=== PATIENT | female | born 1985 | race Caucasian/White ===

== ENCOUNTER 2020-11-15 05:27 | Inpatient (IN) ==
[2020-11-15] MEDS ORDERED: ONDANSETRON 4 MG/2 ML VIAL IV PRN ×2 (05:38→11:43)
[2020-11-15] MEDS ORDERED: LACTATED RINGERS 500 ML IV PRN (05:38)
[2020-11-15] MEDS ORDERED: LACTATED RINGERS 1,000 ML IV ONE (05:38)
[2020-11-15] MEDS ORDERED: AMPICILLIN INJ 2,000 MG in SODIUM CHLORIDE 0.9% 100 ML IV ONE (05:56)
[2020-11-15] MEDS ORDERED: OXYTOCIN/LR 20 UNIT/1,000 ML BAG IV SCH (06:00)
[2020-11-15] MEDS: LACTATED RINGERS 1,000 ML IV SCH ×2 (06:02→08:44)
[2020-11-15 06:21] LABS: Basophils % 0.2 % (0.0-0.8); Eosinophils # 0.1 10*3/uL (0.0-0.87); Eosinophils % 0.5 % (0.00-10.9); Hematocrit 37.6 VOL% (35.7-47.0); Hemoglobin 12.6 GM/DL (12.0-16.0); Immature Granulocytes % 0.9 %; Lymphocytes % 17.9 % (21.3-54.2); Mean Corpuscular HGB Conc 33.5 GM/DL (32-36); Mean Corpuscular Volume 90.6 FL (87-102); Mean Platelet Volume 11.6 FL (9.6-12.0); Monocytes % 5.9 % (1.7-12.7); Neutrophils % 74.6 % (38.7-73.9); Platelet Count 179 T/CUMM (130-400); Red Blood Count 4.15 MC/CUMM (3.8-5.5); Red Cell Distribution Width 14.3 % (9.3-17.3); White Blood Count 10.9 T/CUMM (4-12)
[2020-11-15] MEDS ORDERED: NALOXONE 0.4 MG/ML VIAL IV PRN (06:28)
[2020-11-15] MEDS ORDERED: hydrOXYzine HCL 25 MG/1 ML VIAL IM PRN (06:28)
[2020-11-15] MEDS ORDERED: ePHEDrine 50 MG/ML VIAL IV PRN (06:28)
[2020-11-15] MEDS ORDERED: FAMOTIDINE 20 MG/2 ML VIAL IV ONE (06:28)
[2020-11-15] MEDS ORDERED: CITRIC ACID/SODIUM CITRATE 30 ML UDCUP PO ONE (06:28)
[2020-11-15] MEDS ORDERED: diphenhydrAMINE 50 MG/1 ML VIAL IV PRN (06:28)
[2020-11-15] MEDS ORDERED: fentaNYL 2 MCG/ROPIV 0.2% EPID 100 ML EPIDURAL SCH (06:30)
[2020-11-15 06:41] LABS: Albumin 2.6 G/DL (3.4-5.0); Bilirubin,Total 0.6 MG/DL (0.2-1.0); Osmolality,Calculated 278.5 MOS/KG (273-304); Potassium 3.9 MMOL/L (3.5-5.1); Total Protein 6.5 G/DL (6.4-8.2)
[2020-11-15] MEDS ORDERED: AMPICILLIN INJ 1,000 MG in SODIUM CHLORIDE 0.9% 100 ML IV SCH (10:00)
[2020-11-15 10:39] LABS: Bilirubin,Urine Negative (Negative); Blood, Urine Negative (Negative); Glucose,Urine (UA) Negative (Negative); Ketones,Urine Negative (Negative); Mucus,Urine Occasional /LPF (Occasional); Nitrite,Urine Negative (Negative); Protein,Urine Negative; RBC,Urine 4 /HPF (0-4); Squamous Epithelial Cell,Urine Occasional /HPF (0-10); Urine Appearance CLEAR (Clear); Urine Color Yellow (Yellow); Urine Specific Gravity 1.012 (1.001-1.035); Urine Urobilinogen < 2.0 EU/DL (0.2-1.0)
[2020-11-15] MEDS ORDERED: OXYTOCIN/LR 0 UNIT/0 ML BAG IV ONE (10:55)
[2020-11-15] MEDS ORDERED: TRANEXAMIC ACID 1,000 MG/10 ML VIAL ONE (10:55)
[2020-11-15] MEDS ORDERED: miSOPROStoL 200 MCG TABLET ONE (10:55)
[2020-11-15] MEDS ORDERED: METHYLERGONOVINE 0.2 MG/1 ML AMP ONE (10:56)
[2020-11-15] MEDS ORDERED: CARBOPROST TROMETHAMINE 250 MCG/ML AMP IM ONE (10:56)
[2020-11-15] MEDS ORDERED: SODIUM CHLORIDE 0.9% 0 ML IV ONE (10:57)
[2020-11-15 11:36] LABS: Cord Venous Blood HCO3 25.4 MMOL/L; Cord Venous Blood PO2 29.1
[2020-11-15 11:41] LABS: Cord Arterial Blood HCO3 23.4 MMOL/L
[2020-11-15] MEDS ORDERED: HYDROCORTISONE 2.5% RECTAL CREAM 30 GM TUBE TOP PRN (11:43)
[2020-11-15] MEDS ORDERED: oxyCODONE/ACETAMINOPHEN 5-325 MG TABLET PO PRN ×2 (11:43)
[2020-11-15] MEDS ORDERED: MEASLES/MUMPS/RUBELLA VACCINE 0.5 ML VIAL SUBCUT ONE (11:43)
[2020-11-15] MEDS ORDERED: OXYTOCIN/LR 20 UNIT/1,000 ML BAG IV ONE (11:43)
[2020-11-15] MEDS ORDERED: LANOLIN 50% CREAM 0.3 OZ TUBE TOP PRN (11:43)
[2020-11-15] MEDS ORDERED: BISACODYL 10 MG SUPP RECTAL PRN (11:43)
[2020-11-15] MEDS ORDERED: DIPH/TET/ACEL PERT BOOSTER VACCINE 0.5 ML VIAL IM ONE (11:43)
[2020-11-15] MEDS ORDERED: WITCH HAZEL PADS 100/JAR TOP PRN (11:43)
[2020-11-15] MEDS ORDERED: BENZOCAINE 20%/MENTHOL 0.5% SPRAY 56 GM CAN TOP PRN (11:43)
[2020-11-15] MEDS ORDERED: ACETAMINOPHEN 325 MG TABLET PO PRN (11:43)
[2020-11-15] MEDS ORDERED: RHO(D) IMMUNE GLOBULIN 300 MCG SYRINGE IM ONE (11:43)
[2020-11-15] MEDS: DOCUSATE SODIUM 100 MG CAPSULE PO SCH (21:00)
[2020-11-15] MEDS: IBUPROFEN 800 MG TABLET PO PRN (21:00)
[2020-11-16 05:26] LABS: Basophils % 0.2 % (0.0-0.8); Eosinophils # 0.1 10*3/uL (0.0-0.87); Hematocrit 30.8 VOL% (35.7-47.0); Hemoglobin 9.8 GM/DL (12.0-16.0); Immature Granulocytes % 1.2 %; Immature Granulocytes Absolute 0.15 #; Lymphocytes # 2.6 10*3/uL (1.4-4.0); Lymphocytes % 20.8 % (21.3-54.2); Mean Corpuscular HGB Conc 31.8 GM/DL (32-36); Mean Corpuscular Volume 95.7 FL (87-102); Mean Platelet Volume 11.9 FL (9.6-12.0); Monocytes % 6.8 % (1.7-12.7); Platelet Count 151 T/CUMM (130-400); Red Blood Count 3.22 MC/CUMM (3.8-5.5); Red Cell Distribution Width 14.2 % (9.3-17.3); White Blood Count 12.5 T/CUMM (4-12)
[2020-11-16] MEDS: DOCUSATE SODIUM 100 MG CAPSULE PO SCH ×2 (09:21→21:23)
[2020-11-16] MEDS: IBUPROFEN 800 MG TABLET PO PRN ×3 (09:21→22:03)
[2020-11-17] MEDS: IBUPROFEN 800 MG TABLET PO PRN ×2 (03:43→11:30)
[2020-11-17 07:51] VITALS: BP 126/76
[2020-11-17] MEDS: DOCUSATE SODIUM 100 MG CAPSULE PO SCH (09:24)
[2020-11-17] MEDS ORDERED: DIPH/TET/ACEL PERT BOOSTER VACCINE 0.5 ML VIAL IM ONE (10:10)
== END 2020-11-17 12:20 | disposition home or self-care (01) | DRG 560 ==
LOC: N.LDOUT 05:27 → N.LD 05:31 → N.OB 15:45
PROVIDERS: ADMIT Specialist; ATTEND Specialist